=== PATIENT | male | born 1990 | race Caucasian/White ===

== ENCOUNTER 2016-10-18 14:33 | Emergency (ER) | payer OTHER | END 2016-10-18 17:09 | disposition home or self-care (01) | LOC: ER1 14:33 | DX: J06.9 Acute upper respiratory infection, unspecified (principal); B34.9 Viral infection, unspecified; F20.9 Schizophrenia, unspecified; F17.210 Nicotine dependence, cigarettes, uncomplicated | CPT/HCPCS: 87081; 87880; 99283 ==